=== PATIENT | male | born 1940 | race Caucasian/White ===

== ENCOUNTER 2016-09-16 12:16 | Observation (INO) | payer MEDICARE, OTHER ==
--- NOTE | 2016-09-16 13:20 | ERNOTE ---
Medical Problem HPI - General Chief Complaint: General Assessment Time Seen by Provider: 09/16/16 13:02 Source: patient Exam Limitations: no limitations - Immun/Allergies/Home Medications Immunizations: IMMUNIZATION HX Immunizations Up to Date Yes History of Influenza Vaccine Yes Hx Pneumococcal Vaccination Yes Allergies/Adverse Reactions: Allergies No Known Allergies Allergy (Verified 09/16/16 15:22) Home Medications: HOME MEDICATIONS Albuterol Sulfate [Proair Respiclick] 90 mcg IH Q4H PRN 09/16/16 [Last Taken Unknown] Albuterol Sulfate [Ventolin HFA] 2 puff IH Q4H 09/16/16 [Last Taken Unknown] Allopurinol [Zyloprim] 300 mg PO DAILY 09/16/16 [Last Taken Unknown] Aspirin [Aspirin EC] 81 mg PO DAILY 09/16/16 [Last Taken Unknown] Benzonatate [Tessalon Perle] 100 mg PO Q4H PRN 09/16/16 [Last Taken Unknown] Cyanocobalamin [Vitamin B-12] 1,000 mcg PO DAILY 09/16/16 [Last Taken Unknown] Darbepoetin Sixto in Polysorbat [Aranesp] 25 mcg SQ Q30D 09/16/16 [Last Taken Unknown] Donepezil HCl [Aricept] 10 mg PO HS 09/16/16 [Last Taken Unknown] Fluoxetine HCl 20 mg PO DAILY 09/16/16 [Last Taken Unknown] Furosemide [Lasix] 40 mg PO BID 09/16/16 [Last Taken Unknown] Metoprolol Tartrate [Lopressor] 25 mg PO BID 09/16/16 [Last Taken Unknown] Multivitamins [Multivitamin Ryan] 1 cap PO DAILY 09/16/16 [Last Taken Unknown] Ondansetron HCl [Zofran] 4 mg PO Q4H PRN 09/16/16 [Last Taken Unknown] Pantoprazole Sodium [Protonix] 40 mg PO DAILY 09/16/16 [Last Taken Unknown] Ropinirole HCl [Requip] 0.25 mg PO DAILY 09/16/16 [Last Taken Unknown] Simvastatin [Zocor] 40 mg PO HS 09/16/16 [Last Taken Unknown] Terazosin HCl 2 mg PO HS 09/16/16 [Last Taken Unknown] Warfarin Sodium [Coumadin] 6 mg PO DAILY 09/16/16 [Last Taken Unknown] carBAMazepine [Tegretol] 200 mg PO TID 09/16/16 [Last Taken Unknown] levETIRAcetam [Keppra] 500 mg PO BID #60 tablet 09/16/16 [Last Taken Unknown] oxyCODONE HCL/ACETAMINOPHEN [Percocet 5 MG/325 MG] 1 - 2 tab PO Q4H PRN [Last Taken Unknown] traMADol HCL [Ultram] 50 mg PO Q6H PRN 09/16/16 [Last Taken Unknown] traZODone HCL [Desyrel] 50 mg PO HS 09/16/16 [Last Taken Unknown] - History of Present History Narrative: Patient is a transfer from [facility] for admission to telemetry. The Patient has two near syncopal episodes in the last two days, one yesterday and one this morning. Each time he was standing, started to feel lightheaded, broke out in a sweat and vomited, symptoms lasted 20-30minutes then resolved without passing out. He denies any chest pain. He was seen in the [facility] ER, had chest Xray, head CT, and labs including a troponin did not show any acute findings. As they did not have a telemetry bed patient was transferred for admission here. He has a history of seizures, is unsure what his symptoms with the seizures are , but states that he has had more recently. Tegretol level in [facility] were normal Date (Duration): 09/15/16 Review of Systems - Review of Systems Constitutional: Absent: recent illness, fever ENT: Absent: sore throat Respiratory: Absent: shortness of breath Cardiology: Absent: chest pain Gastrointestinal/Abdominal: Present: See HPI. Absent: diarrhea, abdominal pain Genitourinary: Present: no symptoms reported Musculoskeletal: Absent: muscle pain Skin: Absent: rash Neurological: Absent: headache, weakness, numbness - Patient's Past Medical History Patient History - Medical: Chronic Pain, Diabetes Type 2, Dementia, Seizures, Other Patient History - Cardiac/Respiratory: Atrial Fibrillation, Cardiomyopathy, CHF , COPD, Hypertension, Hyperlipidemia, Myocardial Infarction Patient History - Surgical Procedures: Coronary Bypass Surgery Patient History - Other: None - Family History Father Family History - Medical: Family History - Cardiac/Respiratory: CHF, Hypertension, Pneumonia Family History - Cancer: No pertinent family hx Mother Family History - Medical: Family History - Cardiac/Respiratory: CHF, Hypertension Family History - Cancer: No pertinent family hx - Social History Living Situations: spouse Psych History: Hx of Anxiety, Hx of Depression, Hx of Bipolar Disorder Smoking Status: Former smoker - 90 pack years, quit in 90's Have you smoked in the past 12 months: No Do you dip or chew tobacco: No Patient requests Smoking Cessation Consult: No Initiate information on Smoking Cessation: No - Immunizations Immunizations Up to Date: Yes Hx Pneumococcal Vaccination: Yes History of Influenza Vaccine: Yes Physical Exam - Physical Exam General Appearance: Present: wd/wn, alert, no apparent distress Eye Exam: Normal inspection: bilateral, PERRL: bilateral Respiratory: Present: no respiratory distress, no accessory muscle use, lungs clear, decreased breath sounds Cardiovascular/Chest: Present: no murmur, bradycardia Gastrointestinal/Abdominal: Present: nontender, nondistended, soft Neurological Exam: Present: alert, oriented, normal mood/affect Skin Exam: Present: normal color, warm/dry ED Progress - Results and Orders Results and Orders: reviewed patients chart from [facility] - Vital Signs Patient's Vital Signs:: I have reviewed the patient's vital signs. Vital Signs: Vital Signs 09/16/16 09/16/16 12:19 12:45 Pulse Rate 55 L 50 L Respiratory 16 16 Rate Blood Pressure 151/51 151/55 O2 Sat by Pulse 97 96 Oximetry - EKG EKG: NSR - sinus bradycardia, nonspecific ST T wave changes EKG read: Interp. by me - Progress/Reassessment Chief Complaint: General Assessment Progress Note-Subjective: 09/16/16 13:[address] Campbell 09/16/16 13:32 discussed with nicole German to admit for observation Departure - Departure Clinical Impression: Sinus bradycardia, Near syncope Disposition: [facility] Condition: Fair
[2016-09-16 14:44] VITALS: BP 131/48
--- NOTE | 2016-09-16 15:09 | DS ---
(1) Seizure disorder Problem: Chronic Description of Stay: Patient admitted for "pre-syncope"; however, after further discussion with the patient and his , they tell me that the patient's seizure medication dose was just recently decreased by his PCP 1 week ago. The patient was not started on any additional medications at that time. The patient states that he did well for a few days after the decrease was made but yesterday he had an episode of staring, getting sweaty and feeling like he was going to pass out. He then had another same episode today so presented to the ED. He states that he has a seizure disorder and these episodes are the EXACT same as the episodes he has always had when he has seizures. The patient will be discharged home and instructed to start keppra 500mg PO BID. He should continue all home medications. He should follow-up with his PCP within 1 week. Procedures Performed: none Discharge Disposition: Home self care Disposition: Home self-care Condition: Fair Discharge Activity: Activity as tolerated Discharge Diet: Consistent carbs, Resume usual diet Additional Patient Instructions (free text): Follow-up with Dr. Powell on September 23 at 11:00am. Prescriptions (Any new or edited meds): levETIRAcetam [Keppra] 500 mg PO BID #60 tablet Complete Home Medications List: Complete Home Medication List: Albuterol Sulfate [Proair Respiclick] 90 mcg IH Q4H PRN 09/16/16 Albuterol Sulfate [Ventolin HFA] 2 puff IH Q4H 09/16/16 Allopurinol [Zyloprim] 300 mg PO DAILY 09/16/16 Aspirin [Aspirin EC] 81 mg PO DAILY 09/16/16 Benzonatate [Tessalon Perle] 100 mg PO Q4H PRN 09/16/16 Cyanocobalamin [Vitamin B-12] 1,000 mcg PO DAILY 09/16/16 Darbepoetin Sixto in Polysorbat [Aranesp] 25 mcg SQ Q30D 09/16/16 Donepezil HCl [Aricept] 10 mg PO HS 09/16/16 Fluoxetine HCl 20 mg PO DAILY 09/16/16 Furosemide [Lasix] 40 mg PO BID 09/16/16 Metoprolol Tartrate [Lopressor] 25 mg PO BID 09/16/16 Multivitamins [Multivitamin Ryan] 1 cap PO DAILY 09/16/16 Ondansetron HCl [Zofran] 4 mg PO Q4H PRN 09/16/16 Pantoprazole Sodium [Protonix] 40 mg PO DAILY 09/16/16 Ropinirole HCl [Requip] 0.25 mg PO DAILY 09/16/16 Simvastatin [Zocor] 40 mg PO HS 09/16/16 Terazosin HCl 2 mg PO HS 09/16/16 Warfarin Sodium [Coumadin] 6 mg PO DAILY 09/16/16 carBAMazepine [Tegretol] 200 mg PO TID 09/16/16 levETIRAcetam [Keppra] 500 mg PO BID #60 tablet 09/16/16 oxyCODONE HCL/ACETAMINOPHEN [Percocet 5 MG/325 MG] 1 - 2 tab PO Q4H PRN traMADol HCL [Ultram] 50 mg PO Q6H PRN 09/16/16 traZODone HCL [Desyrel] 50 mg PO HS 09/16/16
--- NOTE | 2016-09-16 16:06 | HP ---
Chief Complaint - Chief Complaint Date of Service: 09/16/16 Time of Service: 15:00 Chief Complaint: 2 episodes of staring, getting sweaty and feeling like going to pass out History of Present Illness: Patient admitted for "pre-syncope"; however, after further discussion with the patient and his , they tell me that the patient's seizure medication dose was just recently decreased by his PCP 1 week ago. The patient was not started on any additional medications at that time. The patient states that he did well for a few days after the decrease was made but yesterday he had an episode of staring, getting sweaty and feeling like he was going to pass out. He then had another same episode today so presented to the ED. He states that he has a seizure disorder and these episodes are the EXACT same as the episodes he has always had when he has seizures. - Patient's Past Medical History Patient History - Medical: Chronic Pain, Diabetes Type 2, Dementia, Seizures, Other Patient History - Cardiac/Respiratory: Atrial Fibrillation, Cardiomyopathy, CHF , COPD, Hypertension, Hyperlipidemia, Myocardial Infarction Patient History - Cancer: No Hx of Cancer Patient History - Surgical Procedures: Coronary Bypass Surgery Patient History - Other: None - Family History Father Family History - Medical: Family History - Cardiac/Respiratory: CHF, Hypertension, Pneumonia Family History - Cancer: No pertinent family hx Mother Family History - Medical: Family History - Cardiac/Respiratory: CHF, Hypertension Family History - Cancer: No pertinent family hx - Social History Living Situations: spouse Abuse History: No History of abuse Psych History: Hx of Anxiety, Hx of Depression, Hx of Bipolar Disorder Smoking Status: Former smoker - 90 pack years, quit in 90's Have you smoked in the past 12 months: No Do you dip or chew tobacco: No Patient requests Smoking Cessation Consult: No Initiate information on Smoking Cessation: No Alcohol Use: none Drug Use: none - Immunizations Immunizations Up to Date: Yes Hx Pneumococcal Vaccination: Yes History of Influenza Vaccine: Yes Review Of Systems (GEN) - Review of Systems Generalized/Overall Review: Present: Diaphoresis EENTM: Present: No Symptoms Reported Respiratory: Present: No Symptoms Reported Cardiac: Present: No Symptoms Reported Abdominal: Present: No Symptoms Reported Genitourinary: Present: No Symptoms Reported Musculoskeletal: Present: No Symptoms Reported Neurological: Present: Seizure Skin: Present: No Symptoms Reported Endocrine: Present: No Symptoms Reported Misc: All systems neg except as marked Immunizations: IMMUNIZATION HX Immunizations Up to Date Yes History of Influenza Vaccine Yes Hx Pneumococcal Vaccination Yes Allergies/Adverse Reactions: Allergies Allergy/AdvReac Type Severity Reaction Status Date / Time No Known Allergies Allergy Verified 09/16/16 15:22 Home Medications: HOME MEDICATIONS Albuterol Sulfate [Proair Respiclick] 90 mcg IH Q4H PRN 09/16/16 [Last Taken Unknown] Albuterol Sulfate [Ventolin HFA] 2 puff IH Q4H 09/16/16 [Last Taken Unknown] Allopurinol [Zyloprim] 300 mg PO DAILY 09/16/16 [Last Taken Unknown] Aspirin [Aspirin EC] 81 mg PO DAILY 09/16/16 [Last Taken Unknown] Benzonatate [Tessalon Perle] 100 mg PO Q4H PRN 09/16/16 [Last Taken Unknown] Cyanocobalamin [Vitamin B-12] 1,000 mcg PO DAILY 09/16/16 [Last Taken Unknown] Darbepoetin Sixto in Polysorbat [Aranesp] 25 mcg SQ Q30D 09/16/16 [Last Taken Unknown] Donepezil HCl [Aricept] 10 mg PO HS 09/16/16 [Last Taken Unknown] Fluoxetine HCl 20 mg PO DAILY 09/16/16 [Last Taken Unknown] Furosemide [Lasix] 40 mg PO BID 09/16/16 [Last Taken Unknown] Metoprolol Tartrate [Lopressor] 25 mg PO BID 09/16/16 [Last Taken Unknown] Multivitamins [Multivitamin Ryan] 1 cap PO DAILY 09/16/16 [Last Taken Unknown] Ondansetron HCl [Zofran] 4 mg PO Q4H PRN 09/16/16 [Last Taken Unknown] Pantoprazole Sodium [Protonix] 40 mg PO DAILY 09/16/16 [Last Taken Unknown] Ropinirole HCl [Requip] 0.25 mg PO DAILY 09/16/16 [Last Taken Unknown] Simvastatin [Zocor] 40 mg PO HS 09/16/16 [Last Taken Unknown] Terazosin HCl 2 mg PO HS 09/16/16 [Last Taken Unknown] Warfarin Sodium [Coumadin] 6 mg PO DAILY 09/16/16 [Last Taken Unknown] carBAMazepine [Tegretol] 200 mg PO TID 09/16/16 [Last Taken Unknown] levETIRAcetam [Keppra] 500 mg PO BID #60 tablet 09/16/16 [Last Taken Unknown] oxyCODONE HCL/ACETAMINOPHEN [Percocet 5 MG/325 MG] 1 - 2 tab PO Q4H PRN [Last Taken Unknown] traMADol HCL [Ultram] 50 mg PO Q6H PRN 09/16/16 [Last Taken Unknown] traZODone HCL [Desyrel] 50 mg PO HS 09/16/16 [Last Taken Unknown] Exam - Exam Vital Signs: Vital Signs - Last Taken Temp 36.8 C 09/16/16 14:33 Pulse 50 L 09/16/16 14:33 Resp 16 09/16/16 14:33 BP 131/48 09/16/16 14:33 Pulse Ox 96 09/16/16 14:33 Constitutional: Present: Alert, Oriented x3, Cooperative, Other - Appears chronically ill, Elderly ENT Exam: Present: moist mucous membranes Respiratory: Present: no respiratory distress, no accessory muscle use, other - Diminished breath sounds bilaterally without crackles, rhonchi or wheezes noted Cardiovascular/Chest: Present: bradycardia, other - Normal rhythm Abdomen: Present: soft, nontender, nondistended Neurologic: Present: alert, normal mood/affect, oriented x 3 Eye contact: Present: cooperative, good eye contact, normal speech Thoughts: Present: normal thought pattern, no apparent hallucination Assessment/Plan - Narrative Narrative: The patient will be discharged home and instructed to start keppra 500mg PO BID. He should continue all home medications. He should follow-up with his PCP within 1 week. - Assessment/Plan (1) Seizure disorder Problem: Chronic
== END 2016-09-16 15:58 | disposition home or self-care (01) ==
LOC: ER 12:16 → MS 13:44
PROVIDERS: ADMIT Internal Medicine; ATTEND Internal Medicine
DX: G40.909 Epilepsy, unspecified, not intractable, without status epilepticus (principal); E11.9 Type 2 diabetes mellitus without complications; F03.90 Unspecified dementia, unspecified severity, without behavioral disturbance, psychotic disturbance, mood disturbance, and anxiety; G89.29 Other chronic pain; I48.91 Unspecified atrial fibrillation; I50.9 Heart failure, unspecified; J44.9 Chronic obstructive pulmonary disease, unspecified; I10 Essential (primary) hypertension; E78.5 Hyperlipidemia, unspecified; I25.2 Old myocardial infarction; Z87.891 Personal history of nicotine dependence
CPT/HCPCS: 93005; 99283; G0378

== ENCOUNTER 2018-08-15 10:06 | Observation (INO) ==
--- NOTE | 2018-08-15 10:23 | ERNOTE ---
GI Bleeding/Rectal Pain ER Presenting Symptoms: rectal bleeding Time Seen by Provider: 08/15/18 10:06 Source: patient, other Exam Limitations: no limitations Immunizations: IMMUNIZATION HX Immunizations Up to Date Yes History of Influenza Vaccine Yes Hx Pneumococcal Vaccination Yes Allergies/Adverse Reactions: Allergies No Known Allergies Allergy (Verified 09/16/16 15:22) Home Medications: HOME MEDICATIONS Albuterol Sulfate [Proair Respiclick] 90 mcg IH Q4H PRN 09/16/16 [Last Taken Unknown] Albuterol Sulfate [Ventolin HFA] 2 puff IH Q4H 09/16/16 [Last Taken Unknown] Allopurinol [Zyloprim] 300 mg PO DAILY 09/16/16 [Last Taken Unknown] Aspirin [Aspirin EC] 81 mg PO DAILY 09/16/16 [Last Taken Unknown] Benzonatate [Tessalon Perle] 100 mg PO Q4H PRN 09/16/16 [Last Taken Unknown] Cyanocobalamin [Vitamin B-12] 1,000 mcg PO DAILY 09/16/16 [Last Taken Unknown] Darbepoetin Sixto in Polysorbat [Aranesp] 25 mcg SQ Q30D 09/16/16 [Last Taken Unknown] Donepezil HCl [Aricept] 10 mg PO HS 09/16/16 [Last Taken Unknown] FLUoxetine HCL [Fluoxetine HCl] 20 mg PO DAILY 09/16/16 [Last Taken Unknown] Furosemide [Lasix] 40 mg PO BID 09/16/16 [Last Taken Unknown] Metoprolol Tartrate [Lopressor] 25 mg PO BID 09/16/16 [Last Taken Unknown] Multivitamins [Multivitamin Ryan] 1 cap PO DAILY 09/16/16 [Last Taken Unknown] Ondansetron HCl [Zofran] 4 mg PO Q4H PRN 09/16/16 [Last Taken Unknown] Pantoprazole Sodium [Protonix] 40 mg PO DAILY 09/16/16 [Last Taken Unknown] Simvastatin [Zocor] 40 mg PO HS 09/16/16 [Last Taken Unknown] Terazosin HCl 2 mg PO HS 09/16/16 [Last Taken Unknown] Warfarin Sodium [Coumadin] 6 mg PO DAILY 09/16/16 [Last Taken Unknown] carBAMazepine [Tegretol] 200 mg PO TID 09/16/16 [Last Taken Unknown] levETIRAcetam [Keppra] 500 mg PO BID #60 tablet 09/16/16 [Last Taken Unknown] oxyCODONE HCL/ACETAMINOPHEN [Percocet 5 MG/325 MG] 1 - 2 tab PO Q4H PRN 09/16/16 [Last Taken Unknown] rOPINIRole HCL [Requip] 0.25 mg PO DAILY 09/16/16 [Last Taken Unknown] traMADol HCL [Ultram] 50 mg PO Q6H PRN 09/16/16 [Last Taken Unknown] traZODone HCL [Desyrel] 50 mg PO HS 09/16/16 [Last Taken Unknown] Narrative: Patient states that he started to pass bright red blood yesterday during the day. He was seen in the [facility] and transferred here for further testing.Patient had one large bloody stool in the ER in [place], he currently denies any abdominal pain, no nausea or vomiting. He is on coumadin for a-fib. His INR today was 2.5. Dr Graves called from [place] at 08:55 and after checking with [facility] patient was accepted for transfer. Timing: intermittent Nausea/Vomiting: Present: blood Abdominal Pain: Present: none Rectal Bleeding: Present: without stool Review of Systems - Review of Systems Constitutional: Absent: recent illness, malaise ENT: Absent: nose congestion, sore throat Respiratory: Absent: shortness of breath, cough Cardiology: Absent: chest pain Gastrointestinal/Abdominal: Present: See HPI. Absent: nausea, vomiting, abdominal pain Genitourinary: Present: no symptoms reported Musculoskeletal: Absent: back pain Neurological: Absent: headache Medical History (Last Updated 08/15/18 @ 11:41 by Flory Kay MD) CAD (coronary artery disease) Dementia Diabetes Hypertension Seizures Surgical History: Surgical History (Last Updated 08/15/18 @ 10:16 by Leighann Miner RN) History of appendectomy History of cholecystectomy Social History: Preferred Language Serbian Abuse History No History of abuse Psych History Hx of Anxiety,Hx of Depression,Hx of Bipolar Disorder No Social History Section defined Physical Exam - Physical Exam General Appearance: Present: wd/wn, alert, no apparent distress Respiratory: Present: no respiratory distress, normal breath sounds, chest nontender, lungs clear Cardiovascular/Chest: Present: regular rate, rhythm, no murmur Gastrointestinal/Abdominal: Present: normal bowel sounds, nontender, nondistended, soft Rectal Exam: Present: nontender, normal rectal tone, other - brown stool on glove Extremity Exam: Present: no edema Neurological Exam: Present: alert, oriented, normal mood/affect, no motor/sensory deficits Progress - Results and Orders Patient's Lab Results:: I have reviewed the patient's lab results. - reviewed labs from [place] - Vital Signs Patient's Vital Signs:: I have reviewed the patient's vital signs. - Progress/Reassessment Progress Note-Subjective: 08/15/18 12:38 no bleeding while here bleeding scan negative 08/15/18 12:39 discussed with nicole Rubio to admit for observation for GI bleed Departure Clinical Impression: Lower GI bleed - Departure Disposition: Still a patient Condition: Stable
[2018-08-15 14:07] LABS: Urine Bilirubin Negative (NEGATIVE); Urine Blood 250 /ul (NEGATIVE); Urine Ketone Negative (NEGATIVE); Urine Nitrite Negative (NEGATIVE); Urine Protein 100 mg/dL (NEGATIVE); Urine Specific Gravity 1.025 SP.GR. (1.005-1.030); Urine Urobilinogen Normal (NORMAL); Urine pH 6.5 pH (5.0-7.0)
[2018-08-15 14:14] LABS: Urine Appearance Turbid (CLEAR); Urine Color Red
[2018-08-15 14:15] LABS: Urine Bacteria 2+; Urine Mucus Moderate - 2+; Urine RBC >50 /hpf (0-5); Urine WBC 0-5 /hpf (0-5)
[2018-08-15 15:01] LABS: Hemoglobin 9.8 gm/dL (13.5-18.0)
[2018-08-15 19:55] LABS: Hematocrit 29.3 % (42.0-52.0); Hemoglobin 9.3 gm/dL (13.5-18.0)
[2018-08-15] MEDS ORDERED: ONDANSETRON HCL/PF 2 MG/ML VIAL IV PRN (20:08)
[2018-08-15] MEDS ORDERED: ACETAMINOPHEN 325 MG TABLET PO PRN (20:08)
[2018-08-15] MEDS: NORMAL SALINE 1,000 ML IV PRN (21:37)
[2018-08-15] MEDS: NYSTATIN 15 APPL BTL TP SCH (21:59)
--- NOTE | 2018-08-15 22:55 | HP ---
Chief Complaint - Chief Complaint Date of Service: 08/15/18 Time of Service: 17:00 Chief Complaint: Blood in toilet History of Present Illness: Victor M is a 77 yo male who presented to the [place] [facility] because of reported blood in stools. He states that after having a bowel movement the toilet water was red. He does not recall seeing blood mixed in with the stool. He denies abdominal pain. He has never had this problem before. He does take aspirin and coumadin with a history of atrial fibrillation. At the [place] [facility] it was reported that he had a bowel movement with bright red blood and clots. They did not have a surgeon available for endoscopy, therefore requested transfer to [facility]. Hemoglobin at [place] was 10. Repeat hemoglobin at [facility] was 9. At [facility] ER he underwent a nuclear GI bleeding scan which was negative for active GI bl eeding. Since arrival he reports that he is urinating blood. Upon further questioning he is not sure if the blood in the toilet was because of urine or stool. INR is at goal. At this time he reports feeling well. He does report having decreased urine stream, increased frequency of urination, and nocturia. He denies discomfort with urination. Medical History (Last Reviewed 08/15/18 @ 13:57 by Sol Means RN) CAD (coronary artery disease) Dementia Diabetes Hypertension Seizures Surgical History: Surgical History (Last Reviewed 08/15/18 @ 13:57 by Sol Means RN) History of appendectomy History of cholecystectomy Family History: Family History (Last Updated 08/15/18 @ 13:57 by Sol Means RN) Mother Heart failure Father Heart failure Social History: Patient Lives/Resources Home Utilized Preferred Language Sinhala Do you have any hinduism or No cultural preference? Smoking Status Former smoker Have you smoked in the past 12 No months Abuse History No History of abuse Psych History Hx of Anxiety,Hx of Depression,Hx of Bipolar Disorder Alcohol Use none Drug Use none No Social History Section defined Review Of Systems (GEN) - Review of Systems Generalized/Overall Review: Absent: Weakness, Chills, Fever EENTM: Present: No Symptoms Reported Respiratory: Absent: Cough, Shortness of Breath Cardiac: Absent: Chest Pain, Edema, Palpitations Abdominal: Present: Nausea. Absent: Vomiting, Hematemesis, Abdominal Pain, Constipation, Diarrhea Genitourinary: Present: Frequency, Nocturia, Hematuria. Absent: Dysuria Musculoskeletal: Present: No Symptoms Reported Neurological: Present: No Symptoms Reported Skin: Present: No Symptoms Reported Endocrine: Present: No Symptoms Reported Immunizations: IMMUNIZATION HX Immunizations Up to Date Yes History of Influenza Vaccine Yes Hx Pneumococcal Vaccination No Allergies/Adverse Reactions: Allergies Allergy/AdvReac Type Severity Reaction Status Date / Time levofloxacin [From Levaquin] Allergy Verified 08/15/18 14:11 metformin Allergy Verified 08/15/18 14:11 Penicillins Allergy Verified 08/15/18 14:11 Home Medications: HOME MEDICATIONS Albuterol Sulfate [Ventolin HFA] 2 puff INHALATION Q4H PRN 08/15/18 [Last Taken Unknown] Allopurinol [Zyloprim (Allopurinol)] 200 mg PO DAILY 08/15/18 [Last Taken Unknown] Aspirin [Aspirin Enteric Coated] 81 mg PO DAILY 08/15/18 [Last Taken Unknown] Cholecalciferol (Vitamin D3) [Vitamin D] 2,000 unit PO 1200 08/15/18 [Last Taken Unknown] Cyanocobalamin [Vitamin B-12] 1,000 mcg PO DAILY 08/15/18 [Last Taken Unknown] Donepezil HCl [Aricept] 5 mg PO HS 08/15/18 [Last Taken Unknown] FLUoxetine HCL [Prozac] 10 mg PO 1200 08/15/18 [Last Taken Unknown] Furosemide [Lasix] 20 mg PO BID 08/15/18 [Last Taken Unknown] Gabapentin [Neurontin] 200 mg PO HS 08/15/18 [Last Taken Unknown] Metoprolol Succinate 25 mg PO BID 08/15/18 [Last Taken Unknown] Ranitidine HCl [Zantac] 150 mg PO DAILY 08/15/18 [Last Taken Unknown] Simvastatin [Zocor] 40 mg PO HS 08/15/18 [Last Taken Unknown] Terazosin HCl 2 mg PO HS 08/15/18 [Last Taken Unknown] Warfarin Sodium [Coumadin] 2.5 mg PO FR 08/15/18 [Last Taken Unknown] Warfarin Sodium [Coumadin] 5 mg PO MOTUWETH 08/15/18 [Last Taken Unknown] carBAMazepine [Tegretol] 100 mg PO DAILY 08/15/18 [Last Taken Unknown] carBAMazepine [Tegretol] 200 mg PO QPM 08/15/18 [Last Taken Unknown] levETIRAcetam [Keppra] 250 mg PO DAILY 08/15/18 [Last Taken Unknown] rOPINIRole HCL [Requip] 0.125 mg PO DAILY 08/15/18 [Last Taken Unknown] Exam - Exam Vital Signs: Vital Signs - Last Taken Temp 36.5 C 08/15/18 13:35 Pulse 58 L 08/15/18 13:35 Resp 10 L 08/15/18 13:35 BP 152/55 H 08/15/18 13:35 Pulse Ox 96 08/15/18 13:35 Constitutional: Present: Alert, Oriented x3, Cooperative ENT Exam: Present: hearing grossly normal Eye Exam: bilateral eye: normal inspection Respiratory: Present: lungs clear, normal breath sounds, no respiratory distress Cardiovascular/Chest: Present: no edema, no murmur, irregularly irregular Abdomen: Present: Normal bowel sounds, soft, nontender, nondistended, no rebound tenderness, no hepatospenomegaly Extremity: Present: normal inspection, normal capillary refill Skin Exam: Present: normal color, warm/dry, no cyanosis Lymphatic: Present: no adenopathy Neurologic: Present: alert, normal mood/affect, oriented x 3 Diagnostic Studies: Abnormal Lab Results 08/15/18 08/15/18 08/15/18 Range/Units 13:17 14:45 19:50 Hgb 9.8 L 9.3 L (13.5-18.0) gm/dL Hct 31.0 L 29.3 L (42.0-52.0) % Urine Protein 100 H (NEGATIVE) mg/dL Urine Blood 250 H (NEGATIVE) /ul Prot Sulfosalicylic Acd 4+ H (0) mg/dL Urine RBC >50 H (0-5) /hpf Urine Bacteria 2+ H (NONE) Urine Mucus Moderate - 2+ H (NONE) Laboratory Results Hgb 9.3 gm/dL (13.5-18.0) L 08/15/18 19:50 Hct 29.3 % (42.0-52.0) L 08/15/18 19:50 Urine Color Red 08/15/18 13:17 Urine Appearance Turbid (CLEAR) 08/15/18 13:17 Urine pH 6.5 pH (5.0-7.0) 08/15/18 13:17 Ur Specific [place] 1.025 SP.GR. (1.005-1.030) 08/15/18 13:17 Urine Protein 100 mg/dL (NEGATIVE) H 08/15/18 13:17 Urine Glucose (UA) Negative mg/dL (NEGATIVE) 08/15/18 13:17 Urine Ketones Negative mg/dL (NEGATIVE) 08/15/18 13:17 Urine Blood 250 /ul (NEGATIVE) H 08/15/18 13:17 Urine Nitrate Negative (NEGATIVE) 08/15/18 13:17 Urine Bilirubin Negative mg/dl (NEGATIVE) 08/15/18 13:17 Prot Sulfosalicylic Acd 4+ mg/dL (0) H 08/15/18 13:17 Urine Urobilinogen Normal EU/dl (NORMAL) 08/15/18 13:17 Ur Leukocyte Esterase Negative /ul (NEGATIVE) 08/15/18 13:17 Urine RBC >50 /hpf (0-5) H 08/15/18 13:17 Urine WBC 0-5 /hpf (0-5) 08/15/18 13:17 Ur Epithelial Cells 0-5 /hpf (0-5) 08/15/18 13:17 Urine Bacteria 2+ (NONE) H 08/15/18 13:17 Urine Mucus Moderate - 2+ (NONE) H 08/15/18 13:17 Urine Culture Comments No culture indicated 08/15/18 13:17 Assessment/Plan - Narrative Narrative: Victor M is a 77 yo male with: 1) Gross Hematuria - I suspect this is what caused the blood in the toilet and not a GI bleed. Reportedly stool hemoccult at [facility] was negative. Nuclear GI bleeding scan in our ER was negative. There are reports of bowel movement with bright red blood with clots at [place], but its possible this was from urine passed at the same time as the stool. Regardless will go ahead and place him on IV protonix. Will make NPO. Will check serial hemograms. No history of kidney stone and no sharp flank/groin pain to suggest stone. He does have symptoms of prostate enlargement. Symptoms could be from severe BPH vs prostatitis. Will treat with doxycycline and proscar. He is already on terazosin, will continue this. Will hold coumadin and aspirin at this time. If hematuria continues to drop hemoglobin will consult urology. Patient is unaware of his last colonoscopy. While in the hospital will closely monitor to differentiate if bleeding is coming strictly from the urinary tract. Will admit to observation at this. If hemogram is stable will plan to discharge with follow up with urology and potentially general surgery. - Assessment/Plan (1) Blood in toilet bowl Problem: Acute (2) Gross hematuria Problem: Acute (3) Acute blood loss anemia Problem: Acute
[2018-08-16] MEDS ORDERED: PANTOPRAZOLE SODIUM 80 MG in NORMAL SALINE 100 ML IV ONE (01:38)
[2018-08-16] MEDS: DOXYCYCLINE HYCLATE 100 MG in DEXTROSE 5 % IN WATER 100 ML IV SCH ×4 (03:16→14:45)
[2018-08-16] MEDS: NYSTATIN 15 APPL BTL TP SCH (08:36)
[2018-08-16] MEDS ORDERED: METOPROLOL SUCCINATE 25 MG TABLET.SA PO SCH (09:00)
[2018-08-16] MEDS ORDERED: FINASTERIDE 5 MG TABLET PO SCH (09:00)
[2018-08-16] MEDS ORDERED: FUROSEMIDE 40 MG TABLET PO SCH (09:00)
[2018-08-16] MEDS ORDERED: rOPINIRole HCL 0.5 MG TABLET PO SCH (09:00)
[2018-08-16] MEDS ORDERED: carBAMazepine 100 MG TAB.CHEW PO SCH (09:00)
[2018-08-16] MEDS ORDERED: levETIRAcetam 500 MG TABLET PO SCH (09:00)
[2018-08-16] MEDS ORDERED: FLUoxetine HCL 10 MG CAPSULE PO SCH (12:00)
[2018-08-16] MEDS: NORMAL SALINE 1,000 ML IV PRN (13:26)
[2018-08-16] MEDS ORDERED: PANTOPRAZOLE SODIUM 40 MG in NORMAL SALINE 100 ML IV SCH (14:00)
[2018-08-16] MEDS ORDERED: carBAMazepine 200 MG TABLET PO SCH (17:00)
--- NOTE | 2018-08-16 17:17 | DS ---
(1) Gross hematuria Problem: Acute (2) Acute blood loss anemia Problem: Acute Description of Stay: Victor M is a 77 yo male that was initially admitted for concerns of GI bleed. However, hemoccult stool was negative and nursing noted blood to be coming from the urine. He had symptoms of urinary frequency, gross hematuria, and decreased urine stream. He was admitted to observation and hemoglobin was trended. Hemoglobin was stable without a need for transfusion. Laboratory Tests 08/15/18 08/15/18 08/16/18 14:45 19:50 01:14 Hgb 9.8 L 9.3 L 8.8 L 08/16/18 08/16/18 07:19 13:25 Hgb 8.8 L 10.2 L He did not have symptoms of kidney stone and it was suspected that etiology was likely bladder or prostate. In case of BPH vs prostatitis he was started on Doxycycline as he is allergic to flouroquinolone as well as proscar, in addition to the terazosin that he is already on at home. He is on coumadin but INR is at goal, this will be continued. Hematuria became final inspector and with hemoglobin trending up, improvement in hematuria, and stable vitals it was felt he was ok for home discharge. He will continue doxycyclone and proscar in addition to his home medications. He will follow up with urology for cystoscopy consideration. Procedures Performed: none Results and Findings: Lab Pending Results 08/15/18 13:17: Urine Color Red, Urine Appearance Turbid, Urine pH 6.5, Ur Specific [place] 1.025, Urine Protein 100 H, Urine Glucose (UA) Negative, Urine Ketones Negative, Urine Blood 250 H, Urine Nitrate Negative, Urine Bilirubin Negative, Prot Sulfosalicylic Acd 4+ H, Urine Urobilinogen Normal, Ur Leukocyte Esterase Negative, Urine RBC >50 H, Urine WBC 0-5, Ur Epithelial Cells 0-5, Urine Bacteria 2+ H, Urine Mucus Moderate - 2+ H, Urine Culture Comments No culture indicated 08/15/18 14:45: Hgb 9.8 L, Hct 31.0 L 08/15/18 19:50: Hgb 9.3 L, Hct 29.3 L 08/16/18 01:14: Hgb 8.8 L 08/16/18 07:19: Hgb 8.8 L 08/16/18 13:25: Hgb 10.2 L Discharge Location: Home Disposition: Home self-care Condition: Good Discharge Activity: Activity as tolerated Discharge Diet: General/regular food Referrals: Noah Mills MD [Associate] - Problem Oriented Discharge Instructions to Patient/Family: Benign Prostatic Hyperplasia, Prostatitis, [id number] Additional Patient Instructions (free text): -Please make TCM appointment unless group home discharge. Thank you! Jenniffer @ [phone]. Prescriptions (Any new or edited meds): Doxycycline Monohydrate 100 mg PO BID #28 tab Finasteride [Proscar] 5 mg PO DAILY #30 tab Nystatin [Mycostatin Powder] 1 appl TOPICAL BID PRN #1 btl PRN Reason: Rash Complete Home Medications List: Complete Home Medication List: Albuterol Sulfate [Ventolin HFA] 2 puff INHALATION Q4H PRN 08/15/18 Allopurinol [Zyloprim] 200 mg PO DAILY 08/15/18 Aspirin [Aspirin Enteric Coated] 81 mg PO DAILY 08/15/18 Cholecalciferol (Vitamin D3) [Vitamin D3] 2,000 unit PO 1200 08/15/18 Cyanocobalamin [Vitamin B-12] 1,000 mcg PO DAILY 08/15/18 Donepezil HCl [Aricept] 5 mg PO HS 08/15/18 FLUoxetine HCL [Prozac] 10 mg PO 1200 08/15/18 Furosemide [Lasix] 20 mg PO BID 08/15/18 Gabapentin [Neurontin] 200 mg PO HS 08/15/18 Metoprolol Succinate 25 mg PO BID 08/15/18 Ranitidine HCl [Zantac] 150 mg PO DAILY 08/15/18 Simvastatin [Zocor] 40 mg PO HS 08/15/18 Terazosin HCl 2 mg PO HS 08/15/18 Warfarin Sodium [Coumadin] 2.5 mg PO FR 08/15/18 Warfarin Sodium [Coumadin] 5 mg PO MOTUWETH 08/15/18 carBAMazepine [Tegretol] 100 mg PO DAILY 08/15/18 carBAMazepine [Tegretol] 200 mg PO QPM 08/15/18 levETIRAcetam [Keppra] 250 mg PO DAILY 08/15/18 rOPINIRole HCL [Requip] 0.125 mg PO DAILY 08/15/18 Acetaminophen [Tylenol] 650 mg PO Q6H PRN tab 08/16/18 Doxycycline Monohydrate 100 mg PO BID #28 tab 08/16/18 Finasteride [Proscar] 5 mg PO DAILY #30 tab 08/16/18 Nystatin [Mycostatin Powder] 1 appl TOPICAL BID PRN #1 btl 08/16/18
[2018-08-16 17:54] VITALS: BP 146/68
[2018-08-16] MEDS ORDERED: GABAPENTIN 100 MG CAPSULE PO SCH (21:00)
[2018-08-16] MEDS ORDERED: SIMVASTATIN 40 MG TABLET PO SCH (21:00)
[2018-08-16] MEDS ORDERED: TERAZOSIN HCL 1 MG CAPSULE PO SCH (21:00)
[2018-08-16] MEDS ORDERED: FUROSEMIDE 20 MG TABLET PO SCH (21:00)
[2018-08-16] MEDS ORDERED: DONEPEZIL HCL 5 MG TABLET PO SCH (21:00)
== END 2018-08-16 18:10 | disposition home or self-care (01) ==
LOC: ER 10:06 → MS 10:06
PROVIDERS: ADMIT Family Medicine; ATTEND Family Medicine
CPT/HCPCS: 36415; 78278; 81001; 85014; 85018; 90686; 96365; 96366; 96367; 99285; A9560; G0008; G0378